=== PATIENT | male | born 1975 | race Caucasian/White ===

== ENCOUNTER → 2019-02-13 11:56 | Outpatient (CLI) | payer BC, SELFPAY ==
--- NOTE | 2019-02-13 12:07 | CT_ITS ---
STUDY: CT LUMBAR SPINE WITHOUT CONTRAST REASON FOR EXAM: Male, 43 years old. Low back pain, leg pain and radiculopathy. RADIATION DOSAGE (If Supplied By Facility): CTDIvol = ( 41.26 ) mGy, DLP = ( 1124.08 ) mGycm TECHNIQUE: The patient was scanned in a multi detector CT scanner. High resolution transaxial imaging was performed. Images were obtained from T12 to S1. Sagittal and coronal images were reconstructed. Individualized dose optimization techniques were used for this CT. COMPARISON: None FINDINGS: Normal lumbar lordosis. There is no substantial scoliosis. Normal vertebrae of the lumbar spine. L1-2: Normal endplates. Normal disc height and morphology. Normal bilateral facet joints. Normal central canal and bilateral lateral recesses. Normal bilateral intervertebral neural foramina. L2-3: Normal endplates. Normal disc height and morphology. Normal bilateral facet joints. Normal central canal and bilateral lateral recesses. Normal bilateral intervertebral neural foramina. L3-4: Normal endplates. Normal disc height and morphology. Normal bilateral facet joints. Normal central canal and bilateral lateral recesses. Normal bilateral intervertebral neural foramina. L4-5: Normal endplates. Normal disc height and morphology. Normal bilateral facet joints. Normal central canal and bilateral lateral recesses. Normal bilateral intervertebral neural foramina. L5-S1: Normal endplates. Normal disc height and morphology. Normal bilateral facet joints. Normal central canal and bilateral lateral recesses. Normal bilateral intervertebral neural foramina. Normal visualized paraspinous soft tissue structures. CT/Spine Lumbar WITH Contrast IMPRESSION: Normal unenhanced CT myelogram of the lumbar spine. Electronically Signed: Brown Cade MD at 17:16 EDT Tel , Service support ,
[2019-02-13 12:22] VITALS: BP 144/91; PULSE 100; RESP 16; TEMP 37.1; O2SAT 97; BMI 53.1
--- NOTE | 2019-02-13 12:30 | RAD_ITS ---
Under fluoroscopic control 22-gauge spinal needle was used and inserted at the levels L3-4. 14 male off Omnipaque 200 were injected in the thecal sac. No evidence of spinal stenosis no disc protrusion seen. The patient tolerated the procedure well. RAD/Lumbar Myelogram IMPRESSION: Negative lumbar myelogram. Electronically Signed: Preston Wetzel, at 16:29 EDT Tel , Service support ,
[2019-02-13 13:50] VITALS: BP 122/77; PULSE 92; RESP 16; O2SAT 97
== END ==
DX: M54.16 Radiculopathy, lumbar region (principal); R29.898 Other symptoms and signs involving the musculoskeletal system
CPT/HCPCS: 62284; 72132; 72265; Q9965